=== PATIENT | male | born 1995 | race Caucasian/White ===

== ENCOUNTER 2021-11-19 01:13 | Emergency (ER) | payer OTHER, SELFPAY ==
--- NOTE | 2021-11-19 01:17 | ERPHSYRPT ---
- History of Present Illness Time Seen by Provider: 11/19/21 01:16 Source: patient Exam Limitations: no limitations Physician History: This is a 26-year-old white male who does a lot of heavy lifting at work and presents with 1 day history of worsening back pain and sciatica. The pain begins in his lumbar region and shoots down his buttock posteriorly down to his posterior upper leg. He has no urinary incontinence. He has no loss of bowel control. He has no foot drop. Patient has had sciatic problems in the past. Its been over a year. Patient does not want to miss work but he states that since yesterday the pain has worsened and he had to leave work today to seek treatment. Patient did not fall or have any traumatic injury. Timing/Duration: yesterday Method of Injury: bending, lifting, twisted Quality: radiating, sharp, stabbing Back Pain Location: paraspinous muscles (Left side) Back Pain Radiation: buttocks, upper legs Severity of Pain-Max: moderate Severity of Pain-Current: moderate Associated Symptoms: denies symptoms, lower back pain, muscle spasms, No urinary incontinence, No constipation, No problems urinating, No numbness in legs/feet, No weakness Previous symptoms: same symptoms as today, no recent treatment Allergies/Adverse Reactions: erythromycin base [Erythromycin Base] Allergy (Mild, Verified 11/19/21 01:21) Home Medications: No Home Meds [No Home Meds] 1 ea UD 02/03/14 [History] Travel Risk - International Travel Have you traveled outside of the country in past 3 weeks: No - Coronavirus Screening Are you exhibiting any of the following symptoms?: No Close contact with a COVID-19 positive Pt in past 14-21 Days: No - Review of Systems Constitutional: No Symptoms Eyes: No Symptoms Ears, Nose, & Throat: No Symptoms Respiratory: No Symptoms Cardiac: No Symptoms Abdominal/Gastrointestinal: No Symptoms Genitourinary Symptoms: No Symptoms Musculoskeletal: Back Pain Skin: No Symptoms Neurological: No Symptoms Psychological: No Symptoms Endocrine: No Symptoms Hematologic/Lymphatic: No Symptoms Immunological/Allergic: No Symptoms All Other Systems: Reviewed and Negative - Past Medical History Pertinent Past Medical History: No - Past Surgical History Past Surgical History: Yes Musculoskeletal: Orthopedic Surgery - Social History Smoking Status: Never smoker Exposure to second hand smoke: No Drug Use: none Patient Lives Alone: No (chews tobacco) - Nursing Vital Signs Nursing Vital Signs: Initial Vital Signs Temperature 98.1 F 11/19/21 01:23 Pulse Rate 103 H 11/19/21 01:23 Respiratory Rate 16 11/19/21 01:23 Blood Pressure 137/96 11/19/21 01:23 O2 Sat by Pulse Oximetry 99 11/19/21 01:23 Pain Scale Pain Intensity 9 - Physical Exam General Appearance: no apparent distress, alert, anxiety Eye Exam: PERRL/EOMI, eyes nml inspection Ears, Nose, Throat Exam: normal ENT inspection, moist mucous membranes Neck Exam: normal inspection, non-tender, supple, full range of motion Respiratory Exam: normal breath sounds, lungs clear, airway intact, No chest tenderness, No respiratory distress Cardiovascular Exam: regular rate/rhythm, normal heart sounds, normal peripheral pulses Gastrointestinal Exam: soft, normal bowel sounds, No tenderness Rectal Exam: not done Back Exam: normal inspection, normal range of motion, decreased range of motion, muscle spasm (Left lumbar region), No CVA tenderness, No vertebral tenderness Extremity Exam: normal inspection, normal range of motion, pelvis stable Neurologic Exam: alert, oriented x 3, cooperative, quill reamer II-XII nml as tested, normal mood/affect, nml cerebellar function, nml station & gait, sensation nml Skin Exam: normal color, warm, dry Lymphatic Exam: No adenopathy SpO2 Interpretation: normal O2 Delivery: Room Air - Course Nursing assessment & vital signs reviewed: Yes Ordered Tests: Medication Summary Discontinued Medications Generic Name Dose Route Start Last Admin Trade Name Walter PRN Reason Stop Dose Admin Hydromorphone HCl 1 mg 11/19/21 01:32 Hydromorphone 1 Mg/1ml Inj 1 Mg/Ml Syringe IM 11/19/21 01:33 STAT ONE Ondansetron HCl 4 mg 11/19/21 01:33 Zofran 4 Mg/Udtablet Orally Disintegrating PO 11/19/21 01:34 STAT ONE Orphenadrine Citrate 60 mg 11/19/21 01:32 Orphenadrine Citrate 60 Mg/2 Ml Amp IM 11/19/21 01:33 STAT ONE - Progress Progress: improved, pain not gone completely Counseled pt/family regarding: diagnosis, need for follow-up - Departure Departure Disposition: Home Clinical Impression: Left sided sciatica Condition: Stable Critical Care Time: No Referrals: CURTIS SANCHES [Primary Care Provider] - Follow up/PCP as directed Additional Instructions: Take your medication as prescribed. Follow-up with your primary care physician for persistent symptoms. Prescriptions: Prednisone 10 mg [Deltasone 10 mg] 10 mg PO TID #12 tablet Orphenadrine Citrate 100 mg [Norflex 100 MG Tablet] 100 mg PO BID #10 tab
[2021-11-19] MEDS ORDERED: Hydromorphone 1 mg/ml Injection IM ONE (01:32)
[2021-11-19] MEDS ORDERED: Norflex 60 MG/2 ML IM ONE (01:32)
[2021-11-19] MEDS ORDERED: ZOFRAN ODT 4 MG PO ONE (01:33)
[2021-11-19] MEDS ORDERED: ZOFRAN ODT 4 MG ONE (01:47)
[2021-11-19] MEDS ORDERED: Norflex 60 MG/2 ML ONE (01:47)
[2021-11-19] MEDS ORDERED: Hydromorphone 1 mg/ml Injection ONE (01:48)
[2021-11-19 02:18] VITALS: BP 141/63; PULSE 96; O2SAT 96
== END 2021-11-19 02:22 | disposition home or self-care (01) ==
LOC: ED 01:13
DX: M54.32 Sciatica, left side (principal); Z79.52 Long term (current) use of systemic steroids
CPT/HCPCS: 96372; 99284; J1170; J2360; Q0162